=== PATIENT | male | born 2000 | race Two or more races ===

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

== ENCOUNTER 2021-06-17 14:04 | Emergency (ER) | payer OTHER ==
[~2021-06-17] VITALS: Ht 167.6 cm; Wt 96.0 kg
[2021-06-17 14:22] VITALS: BP 140/62
--- NOTE | 2021-06-17 14:29 | PHYS DOC ---
Past History Past Medical History: Other Additional Past Medical Histor: history of fast heart beat possible heart murmur Past Surgical History: Appendectomy Alcohol Use: None Drug Use: None General Adult EDM: Chief Complaint: LACERATION/AVULSION HPI: HPI: Patient is a 20-year-old male who presents to the emergency department today for a laceration to the top of his head that occurred when he was walking down the stairs and hit his head, ceiling. Patient denies any loss of consciousness, blood thinner use, nausea, vomiting. He is unsure of his last tetanus shot. Review of Systems: Review of Systems: HENT: See HPI GI: See HPI Musculoskeletal: See HPI Integument: See HPI Neurologic: See HPI Allergies: Allergies: Allergies Coded Allergies Type Severity Reaction Last Updated Verified No Known Allergies Allergy Unknown 01/17/20 Yes Physical Exam: PE: Constitutional: Well developed, well nourished, no acute distress, non-toxic appearance. [] HENT: Normocephalic, 1.5 centimeter laceration noted to the top of patient's head with active bleeding, no raccoon or howard sign, no palpable skull fracture, bilateral external ears normal, oropharynx moist, no oral exudates, nose normal. [] Eyes: PERRL, EOMI, conjunctiva normal, no discharge. [] Neck: Normal range of motion, no tenderness, supple, no stridor. [] Cardiovascular:Heart rate regular rhythm, no murmur [] Lungs & Thorax: Bilateral breath sounds clear to auscultation [] Abdomen: Bowel sounds normal, soft, no tenderness, no masses, no pulsatile masses. [] Skin: Warm, dry, no erythema, no rash. [] Back: Normal range of motion Extremities: No tenderness, no cyanosis, no clubbing, ROM intact, no edema. [] Neurologic: Alert and oriented X 3, normal motor function, normal sensory f unction, no focal deficits noted. [] Psychologic: Affect normal, judgement normal, mood normal. [] EKG: EKG: [] Radiology/Procedures: Radiology/Procedures: [] Heart Score: C/O Chest Pain: N/A Risk Factors: Risk Factors: DM, Current or recent (<one month) smoker, HTN, HLP, family history of CAD, obesity. Risk Scores: Score 0 - 3: 2.5% MACE over next 6 weeks - Discharge Home Score 4 - 6: 20.3% MACE over next 6 weeks - Admit for Clinical Observation Score 7 - 10: 72.7% MACE over next 6 weeks - Early Invasive Strategies Course & Med Decision Making: Course & Med Decision Making Pertinent Labs and Imaging studies reviewed. (See chart for details) [] Patient resents to the emergency department for a laceration to his scalp. Wound was cleansed with sterile wound wash. Patient refused lidocaine. Laceration repair performed. There is no visible foreign bodies. Patient tolerated procedure. Dressing was placed. Tetanus updated today. Patient educated on staple removal and wound care. I discussed with patient all findings and diagnostic testing as well as the need to follow-up with PCP for further evaluation and treatment or return to the ER if any new or worsening symptoms. Strict return precautions were also discussed at length. Patient voiced understanding and agreement with the plan. Patient is hemodynamically stable at the time of disposition. Dragon Disclaimer: Dragon Disclaimer: This electronic medical record was generated, in whole or in part, using a voice recognition dictation system. Departure Departure: Impression: Primary Impression: Laceration Disposition: HOME / SELF CARE / HOMELESS Condition: GOOD Referrals: RONY CUNHA (PCP) Patient Instructions: Laceration Care, Adult Additional Instructions: You are seen in the emergency department today for a laceration to your scalp. This is repaired with jaja. These keep this area clean and dry. You can wash with mild soap and warm water. Do not vigorously scrub your head as you do not want to disrupt the jaja. Follow-up with your primary care provider return to the emergency department to have your jaja removed in 7 to 10 days. You can take Tylenol and ibuprofen at home for pain and you can apply ice. Monitor your laceration site for any signs of infection which include redness, warmth, swelling or drainage. If you develop any of the signs of infection, confusion, severe head pain, seizure-like activity, vision changes, poor coordination, speech changes, intractable nausea or vomiting any new or worsening concerns please return to the emergency department. DERRICK GUTIERREZ APRN Jun 17, 2021 14:29
[2021-06-17] MEDS ORDERED: LIDOCAINE 1%/EPI 1:100,000 20 ML VIAL. IJ ONE (14:30)
== END 2021-06-17 15:15 | disposition home or self-care (01) ==
LOC: ER 14:04
DX: S01.01XA Laceration without foreign body of scalp, initial encounter (principal); W22.8XXA Striking against or struck by other objects, initial encounter; Y93.01 Activity, walking, marching and hiking; Y92.89 Other specified places as the place of occurrence of the external cause; Y99.8 Other external cause status
CPT/HCPCS: 12001; 99282